=== PATIENT | female | born 1950 | race Caucasian/White ===

== ENCOUNTER 2022-05-30 09:50 | Outpatient (CLI) | payer MEDICARE ==
[2022-05-30 11:15] LABS: #Basophils 0.1 10x3/uL (0.0-0.2); #Eosinphils 0.1 10x3/uL (0.0-0.5); #Monocytes 0.7 10x3/uL (0.0-1.1); #Neutrophils 7.2 10x3/uL (1.5-8.4); %Basophils 0.8 % (0.0-2.0); %Eosinophils 0.9 % (0.0-6.0); %Lymphocytes 19.9 % (18.0-47.0); %Monocytes 6.8 % (0.0-10.0); %Neutrophils 71.3 % (40.0-75.0); Hemoglobin 13.7 g/dL (12.0-15.5); Mean Corpuscular HGB CONC 32.9 g/dL (32.0-36.0); Mean Corpuscular Volume 87.9 fl (81.6-98.3); Mean Platelet Volume 9.7 fl (7.4-10.4); Platelet Count 239 10x3/uL (150-450); Red Blood Cell (RBC) Count 4.73 10x6/uL (3.90-5.03); White Blood Cell (WBC) Count 10.1 10x3/uL (3.5-10.5)
[2022-05-30 11:30] LABS: Anion Gap 15 mmol/L (10-20); BUN (Urea Nitrogen) 24 mg/dL (9.8-20.1); Calc. Creatinine Clearance 0 mL/min (70-130); Carbon Dioxide 27 mmol/L (23-31); Chloride 106 mmol/L (98-107); Estimated GFR 65; Glucose 100 mg/dL (80-115); Potassium 4.5 mmol/L (3.5-5.1); Sodium 143 mmol/L (136-145)
[2022-05-30 17:02] LABS: T4 7.7 ug/dL (4.87-11.72)
[2022-05-30 17:03] LABS: Vitamin D, 25 Hydroxy 50.9 ng/ml (> 30.0)
== END 2022-05-30 09:51 | disposition home or self-care (01) ==
LOC: LABBT 09:50
PROVIDERS: ATTEND Orthopaedic Surgery
DX: Z01.818 Encounter for other preprocedural examination (principal); M75.101 Unspecified rotator cuff tear or rupture of right shoulder, not specified as traumatic; M67.921 Unspecified disorder of synovium and tendon, right upper arm; Z20.822 Contact with and (suspected) exposure to COVID-19
CPT/HCPCS: 80048; 82306; 84436; 84443; 85025; 87811; 93005; 93010

== ENCOUNTER 2022-06-04 05:32 | Day surgery (SDC) | payer MEDICARE ==
[2022-06-02 13:21] VITALS: BMI 23.5
[2022-06-04] MEDS ORDERED: HYDROmorphone 2 MG/ML VIAL ONE (06:12)
[2022-06-04] MEDS ORDERED: fentaNYL Citrate/PF 100 MCG/2 ML SYRINGE ONE (06:12)
[2022-06-04] MEDS ORDERED: Lidocaine 1% w/Epinephrine 1:100K 20 ML VIAL ONE (06:45)
[2022-06-04] MEDS ORDERED: Fentanyl 100 MCG/2 ML VIAL ONE (06:48)
[2022-06-04] MEDS ORDERED: Midazolam HCl 2 mg/2 ml Vial ONE (06:48)
[2022-06-04] MEDS ORDERED: CEFAZOLIN 2 GM VIAL ONE (06:55)
[2022-06-04] MEDS ORDERED: Sodium Chloride 0.9% 100 ML ONE (06:55)
[2022-06-04] MEDS ORDERED: Famotidine/PF 20 mg/2ml Vial ONE (07:03)
[2022-06-04] MEDS ORDERED: SUGAMMADEX SODIUM 200 MG/2 ML VIAL ONE (07:06)
[2022-06-04] MEDS ORDERED: Ondansetron PF 4 MG/2 ML Vial IVP PRN (08:45)
[2022-06-04] MEDS ORDERED: HYDROcodone/Acetaminophen 5/325 mg Tablet PO PRN ×2 (08:45)
[2022-06-04] MEDS ORDERED: Zolpidem Tartrate 5 MG TAB PO PRN (08:45)
[2022-06-04] MEDS ORDERED: traMADol HCl 50 MG TAB PO PRN ×2 (08:45)
[2022-06-04] MEDS ORDERED: Promethazine HCl 25 MG/ML VIAL IM PRN (08:45)
[2022-06-04] MEDS ORDERED: Ropivacaine 0.2% 550 ML 550 ML NERVE BLCK SCH (08:45)
[2022-06-04] MEDS ORDERED: Bupivacaine HCl 0.5%/Epinephrine 1:200,000/PF 30 ml Vial ONE (09:10)
[2022-06-04] MEDS ORDERED: ePHEDrine Sulfate 50 MG/10 ML VIAL ONE (10:50)
[2022-06-04] MEDS ORDERED: Dexamethasone 20 MG/5 ML VIAL ONE (10:50)
[2022-06-04] MEDS ORDERED: diphenhydrAMINE 50 MG/ML VIAL ONE (10:50)
[2022-06-04] MEDS ORDERED: Ondansetron PF 4 MG/2 ML Vial ONE (10:50)
[2022-06-04] MEDS ORDERED: Ketorolac Tromethamine 30 MG/ML VIAL ONE (10:50)
[2022-06-04] MEDS ORDERED: Metoclopramide HCl 10 MG/2 ML VIAL ONE (10:50)
[2022-06-04] MEDS ORDERED: Glycopyrrolate 0.2 MG/ML 5 ML SYRINGE ONE (10:50)
[2022-06-04] MEDS ORDERED: PHENYLEPHRINE-NS 100 MCG/ML 10 ML SYRINGE ONE (10:50)
[2022-06-04] MEDS ORDERED: Lidocaine 1% PF 5 ML VIAL ONE (10:50)
[2022-06-04] MEDS ORDERED: PROPOFOL 200 MG/20 ML VIAL ONE (10:50)
[2022-06-04] MEDS ORDERED: Rocuronium Bromide 10 MG/ML (10ML VIAL) ONE (10:50)
[2022-06-04] MEDS ORDERED: Ketorolac Tromethamine 30 MG/ML VIAL IVP SCH (12:00)
== END 2022-06-04 12:06 | disposition home or self-care (01) ==
LOC: SDC 05:32
PROVIDERS: ATTEND Orthopaedic Surgery
PROC: 0LM14ZZ Reattachment of Right Shoulder Tendon, Percutaneous Endoscopic Approach (ICD-10-PCS; principal; 2022-06-04)
PROC: 0LS30ZZ Reposition Right Upper Arm Tendon, Open Approach (ICD-10-PCS; 2022-06-04)
PROC: 0RHJ04Z Insertion of Internal Fixation Device into Right Shoulder Joint, Open Approach (ICD-10-PCS; 2022-06-04)
PROC: 3E0T3BZ Introduction of Anesthetic Agent into Peripheral Nerves and Plexi, Percutaneous Approach (ICD-10-PCS; 2022-06-04)
DX: M75.121 Complete rotator cuff tear or rupture of right shoulder, not specified as traumatic (principal); M67.813 Other specified disorders of tendon, right shoulder; Z79.899 Other long term (current) drug therapy
CPT/HCPCS: 23430; 29827; 64416; A4306; C1713; J0690; J1100; J1170; J1200; J1885; J2250; J2405; J2704; J2710; J2765; J2795; J3010; J3490; S0028

== ENCOUNTER 2024-11-22 07:39 | Outpatient (CLI) | payer MEDICARE | END 2024-11-22 07:40 | disposition home or self-care (01) | LOC: BICMAMMO 07:39 | PROVIDERS: ATTEND Nurse Practitioner Family | DX: N63.11 Unspecified lump in the right breast, upper outer quadrant (principal) | CPT/HCPCS: 76642; 77065; G0279 ==